=== PATIENT | female | born 1945 | race Caucasian/White ===

== ENCOUNTER 2022-02-09 10:35 | Outpatient (CLI) | payer MEDICARE | END 2022-02-09 10:36 | disposition home or self-care (01) | LOC: CSHCT 10:35 | PROVIDERS: ATTEND Internal Medicine Critical Care Medicine | DX: R91.8 Other nonspecific abnormal finding of lung field (principal); I28.1 Aneurysm of pulmonary artery; R91.1 Solitary pulmonary nodule | CPT/HCPCS: 71260; 82565 ==

== ENCOUNTER 2022-05-18 13:28 | Outpatient (CLI) | payer MEDICARE ==
[2022-05-18] MEDS ORDERED: Iopamidol 300 61% 100 ML VIAL FS ONE (15:57)
== END 2022-05-18 13:29 | disposition home or self-care (01) ==
LOC: CSHCT 13:28
PROVIDERS: ATTEND Internal Medicine Critical Care Medicine
DX: R91.8 Other nonspecific abnormal finding of lung field (principal); R91.1 Solitary pulmonary nodule
CPT/HCPCS: 71260; 82565; Q9967

== ENCOUNTER 2023-07-01 16:09 | Outpatient (CLI) | payer MEDICARE ==
[2023-07-01 17:38] LABS: Hematocrit 39.5 % (34.9-44.5); Hemoglobin 13.1 g/dL (12.0-15.5); Mean Corpuscular HGB CONC 33.2 g/dL (32.0-36.0); Mean Corpuscular Hemoglobin 31.3 pg (27.0-33.0); Mean Corpuscular Volume 94.3 fl (81.6-98.3); Mean Platelet Volume 9.7 fl (7.4-10.4); Platelet Count 187 10x3/uL (150-450); Red Blood Cell (RBC) Count 4.19 10x6/uL (3.90-5.03); White Blood Cell (WBC) Count 4.9 10x3/uL (3.5-10.5)
[2023-07-01 17:48] LABS: PTT 26.6 sec (22.0-33.0); Prothrombin Time 10.6 sec (9.5-12.1)
[2023-07-01 17:51] LABS: Anion Gap 15 mmol/L (10-20); BUN (Urea Nitrogen) 19 mg/dL (9.8-20.1); Calc. Creatinine Clearance 0 mL/min (70-130); Calcium 9.5 mg/dL (7.8-10.44); Carbon Dioxide 27 mmol/L (23-31); Chloride 100 mmol/L (98-107); Estimated GFR 72; Glucose 90 mg/dL (83-110); Potassium 4.3 mmol/L (3.5-5.1); Sodium 138 mmol/L (136-145)
== END 2023-07-01 16:10 | disposition home or self-care (01) ==
LOC: CSHLAB 16:09
PROVIDERS: ATTEND Orthopaedic Surgery
DX: Z01.818 Encounter for other preprocedural examination (principal)
CPT/HCPCS: 80048; 85027; 85610; 85730; 93005; 93010

== ENCOUNTER 2023-07-05 11:02 | Day surgery (SDC) | payer MEDICARE ==
[2023-07-01 16:36] VITALS: BMI 30.8
[2023-07-05] MEDS ORDERED: fentaNYL 50 mcg/mL 1 mL Vial ONE (11:54)
[2023-07-05] MEDS ORDERED: Famotidine/PF 20 mg/2ml Vial ONE (11:54)
[2023-07-05] MEDS ORDERED: Bupivacaine 0.25% HCL 30 ML VIAL ONE (12:48)
[2023-07-05] MEDS ORDERED: Iopamidol 300 61% 100 ML VIAL FS ONE (12:48)
[2023-07-05] MEDS ORDERED: EPINEPHrine 1 MG/ML AMP ONE (12:48)
[2023-07-05] MEDS ORDERED: CEFAZOLIN 2 GM VIAL ONE (12:48)
== END 2023-07-05 16:30 | disposition home or self-care (01) ==
LOC: CSHSDC 11:02
PROVIDERS: ATTEND Orthopaedic Surgery
PROC: 0PS43ZZ Reposition Thoracic Vertebra, Percutaneous Approach (ICD-10-PCS; principal; 2023-07-05)
PROC: 0PU43JZ Supplement Thoracic Vertebra with Synthetic Substitute, Percutaneous Approach (ICD-10-PCS; 2023-07-05)
DX: M48.54XA Collapsed vertebra, not elsewhere classified, thoracic region, initial encounter for fracture (principal); M89.9 Disorder of bone, unspecified; J44.9 Chronic obstructive pulmonary disease, unspecified; K21.9 Gastro-esophageal reflux disease without esophagitis; Z79.899 Other long term (current) drug therapy; Z88.5 Allergy status to narcotic agent; Z90.710 Acquired absence of both cervix and uterus; S22.060A Wedge compression fracture of T7-T8 vertebra, initial encounter for closed fracture
CPT/HCPCS: 22513; 72100; C1713; J3010; 88307; 88311; 88342; J0171; Q9967; S0020; S0028

== ENCOUNTER 2023-10-24 14:48 | Outpatient (CLI) | payer MEDICARE | END 2023-10-24 14:49 | disposition home or self-care (01) | LOC: CSHMAMMO 14:48 | PROVIDERS: ATTEND Internal Medicine | DX: Z13.820 Encounter for screening for osteoporosis (principal); M81.0 Age-related osteoporosis without current pathological fracture; M85.851 Other specified disorders of bone density and structure, right thigh | CPT/HCPCS: 77080 ==

== ENCOUNTER 2025-05-02 14:22 | Outpatient (CLI) | payer MEDICARE | END 2025-05-02 14:23 | disposition home or self-care (01) | LOC: CSHCP 14:22 | PROVIDERS: ATTEND Internal Medicine Critical Care Medicine | DX: J44.9 Chronic obstructive pulmonary disease, unspecified (principal) | CPT/HCPCS: 94060; 94726; 94729; 94760 ==